=== PATIENT | female | born 1975 | race Caucasian/White ===

== ENCOUNTER 2018-02-19 12:35 | Day surgery (SDC) | payer BC ==
[~2018-02-19 12:35] MED LIST: CEFAZOLIN 1 GM INJ; DEXAMETHASONE 4 MG/ML 1 ML INJ; LIDOCAINE 2% (SDV) 5 ML INJ; METOCLOPRAMIDE 10 MG INJ; PROPOFOL 200 MG INJ; ROCURONIUM 50 MG INJ; SUCCINYLCHOLINE CHLORIDE 100 MG/5 ML SYG IV
[2018-02-19] MEDS ORDERED: CEFAZOLIN 1 GM/50 ML (PMX) 50 ML IVPB (15:00)
[2018-02-19] MEDS ORDERED: SOD CHLORIDE 0.9% 1,000 ML IV (15:00)
[2018-02-19] MEDS ORDERED: FENTAnyl 50 MCG/ML VIAL (17:41)
[2018-02-19] MEDS ORDERED: MIDAZOLAM 1 MG/ML 2 ML INJ (17:42)
[2018-02-19] MEDS ORDERED: ONDANSETRON 4 MG INJ (17:43)
[2018-02-19] MEDS ORDERED: BUPIVACAINE 0.25% (MPF) 30 ML INJ (18:15)
[2018-02-19] MEDS ORDERED: SUGAMMADEX SODIUM 200 MG/2 ML VIAL IV (19:19)
[2018-02-19] MEDS: BUPIVACAINE 0.25% (MPF) 30 ML INJ INJ ×2 (19:20)
[2018-02-19] MEDS: HYDROmorphONE 1 MG/5 ML IV SYRINGE IV ×3 (19:51→20:31)
[2018-02-19] MEDS ORDERED: MEPERIDINE 25 MG INJ IV (20:00)
[2018-02-19] MEDS ORDERED: FENTAnyl 50 MCG/ML VIAL IV ×2 (20:00)
[2018-02-19] MEDS ORDERED: DIPHENHYDRAMINE 50 MG INJ IV (20:00)
[2018-02-19] MEDS: ONDANSETRON 4 MG INJ IV (20:35)
[2018-02-19] MEDS: HYDROCODONE/APAP (5/325) TAB PO (21:00)
== END 2018-02-19 21:50 | disposition home or self-care (01) ==
LOC: SDS 12:35
DX: K80.10 Calculus of gallbladder with chronic cholecystitis without obstruction (principal)
CPT/HCPCS: 47562; 84703; 88304

== ENCOUNTER 2018-03-04 11:22 | Inpatient (IN) | payer BC ==
[2018-03-04] MEDS: ONDANSETRON 4 MG INJ IV (11:52)
[2018-03-04] MEDS: HYDROmorphONE 1 MG/ML SYG IV (11:52)
[2018-03-04] MEDS: SOD CHLORIDE 0.9% 1,000 ML IV (11:52)
[2018-03-04 11:57] LABS: ADD MAN DIFF? NO
[2018-03-04 11:58] LABS: WHITE BLOOD COUNT 13.2 10^3/ul (4.8-10.8)
[2018-03-04 11:58] LABS: BASOPHILS % 0.2 % (0.0-2.0); EOSINOPHILS # 0.1 10^3/ul (0.0-0.5); HEMATOCRIT 37.5 % (37.0-47.0); HEMOGLOBIN 11.9 g/dl (12.0-16.0); LYMPHOCYTES # 2.3 10^3/ul (0.8-2.9); LYMPHOCYTES % 17.2 % (15.0-51.0); MEAN CORPUSCULAR HEMOGLOBIN 28.2 pg (29.0-33.0); MEAN CORPUSCULAR HGB CONC 31.7 g/dl (32.0-37.0); MEAN CORPUSCULAR VOLUME 88.9 fl (82.0-101.0); MEAN PLATELET VOLUME 9.2 fl (7.4-10.4); MONOCYTE # 0.4 10^3/ul (0.3-0.9); NEUTROPHIL # 10.3 10^3/ul (1.6-7.5); NEUTROPHILS % 78.1 % (39.0-77.0); PLATELET COUNT 294 10^3/UL (140-415); RED BLOOD COUNT 4.22 10^6/ul (4.20-5.40); RED CELL DISTRIBUTION WIDTH 13.5 % (11.5-14.5)
[2018-03-04 12:25] LABS: ALANINE AMINOTRANSFERASE 95 IU/L (13-69); ALBUMIN 3.5 g/dl (3.3-4.9); ALBUMIN/GLOBULIN RATIO 0.89; ALKALINE PHOSPHATASE 133 IU/L (42-121); ANION GAP 13 (8-16); ASPARTATE AMINO TRANSFERASE 214 IU/L (15-46); BILIRUBIN,INDIRECT 0.3 mg/dl (0-1.1); BILIRUBIN,TOTAL 0.3 mg/dl (0.2-1.3); BLOOD UREA NITROGEN 18 mg/dl (7-20); CALCIUM 8.5 mg/dl (8.4-10.2); CARBON DIOXIDE 26 mmol/L (21-31); CHLORIDE 107 mmol/L (97-110); CREATININE 0.57 mg/dl (0.44-1.00); GLUCOSE 176 mg/dl (70-220); LIPASE 1233 U/L (23-300); POTASSIUM 4.2 mmol/L (3.5-5.1); SODIUM 142 mmol/L (135-144); TOTAL PROTEIN 7.4 g/dl (6.1-8.1)
[2018-03-04] MEDS: IOHEXOL 300MG/ML 150 ML BTL (13:35)
[2018-03-04] MEDS: SOD CHLORIDE 0.9% 100 ML (13:35)
[2018-03-04] MEDS ORDERED: ACETAMINOPHEN 325 MG TAB PO (14:30)
[2018-03-04] MEDS ORDERED: ONDANSETRON 4 MG INJ IV ×2 (14:30→16:00)
[2018-03-04] MEDS ORDERED: NACL 0.9% 3 ML SYG IV (16:00)
[2018-03-04] MEDS ORDERED: DOCUSATE SODIUM 100 MG CAP PO (16:00)
[2018-03-04] MEDS: DEXTROSE 5%-0.45% NACL 1,000 ML IV (16:01)
[2018-03-04] MEDS: PIPER-TAZO 3.375 GM IV (PMX) 100 ML IVPB ×2 (16:01→23:39)
[2018-03-04] MEDS: morphine 2 MG INJ IV (22:28)
[2018-03-05] MEDS: DEXTROSE 5%-0.45% NACL 1,000 ML IV ×4 (01:12→21:38)
[2018-03-05 05:55] LABS: ADD MAN DIFF? NO
[2018-03-05 06:14] LABS: WHITE BLOOD COUNT 7.8 10^3/ul (4.8-10.8)
[2018-03-05 06:14] LABS: BASOPHILS % 0.4 % (0.0-2.0); EOSINOPHILS # 0.2 10^3/ul (0.0-0.5); EOSINOPHILS % 2.2 % (0.0-7.0); HEMOGLOBIN 9.7 g/dl (12.0-16.0); LYMPHOCYTES # 0.6 10^3/ul (0.8-2.9); LYMPHOCYTES % 7.7 % (15.0-51.0); MEAN CORPUSCULAR HEMOGLOBIN 27.3 pg (29.0-33.0); MEAN CORPUSCULAR HGB CONC 31.3 g/dl (32.0-37.0); MEAN CORPUSCULAR VOLUME 87.3 fl (82.0-101.0); MEAN PLATELET VOLUME 9.7 fl (7.4-10.4); MONOCYTE # 0.7 10^3/ul (0.3-0.9); MONOCYTES % 8.4 % (0.0-11.0); NEUTROPHIL # 6.3 10^3/ul (1.6-7.5); NEUTROPHILS % 80.9 % (39.0-77.0); PLATELET COUNT 257 10^3/UL (140-415); RED BLOOD COUNT 3.55 10^6/ul (4.20-5.40); RED CELL DISTRIBUTION WIDTH 13.7 % (11.5-14.5)
[2018-03-05] MEDS: PIPER-TAZO 3.375 GM IV (PMX) 100 ML IVPB ×4 (06:16→23:44)
[2018-03-05] MEDS: PANTOPRAZOLE 40 MG INJ IV (06:16)
[2018-03-05 06:25] LABS: LIPASE 821 U/L (23-300)
[2018-03-05 06:32] LABS: ALANINE AMINOTRANSFERASE 435 IU/L (13-69); ALBUMIN/GLOBULIN RATIO 0.88; ALKALINE PHOSPHATASE 175 IU/L (42-121); ANION GAP 8 (8-16); ASPARTATE AMINO TRANSFERASE 614 IU/L (15-46); BILIRUBIN,INDIRECT 0.2 mg/dl (0-1.1); BILIRUBIN,TOTAL 0.2 mg/dl (0.2-1.3); BLOOD UREA NITROGEN 10 mg/dl (7-20); CARBON DIOXIDE 29 mmol/L (21-31); CHLORIDE 110 mmol/L (97-110); CREATININE 0.48 mg/dl (0.44-1.00); GLUCOSE 108 mg/dl (70-220); POTASSIUM 3.6 mmol/L (3.5-5.1); SODIUM 143 mmol/L (135-144); TOTAL PROTEIN 6.4 g/dl (6.1-8.1)
[2018-03-06] MEDS: DEXTROSE 5%-0.45% NACL 1,000 ML IV ×3 (03:23→16:29)
[2018-03-06 05:33] LABS: ADD MAN DIFF? NO
[2018-03-06] MEDS: PIPER-TAZO 3.375 GM IV (PMX) 100 ML IVPB ×3 (05:39→17:41)
[2018-03-06] MEDS: PANTOPRAZOLE 40 MG INJ IV (05:39)
[2018-03-06 05:41] LABS: BASOPHILS % 0.5 % (0.0-2.0); EOSINOPHILS # 0.4 10^3/ul (0.0-0.5); EOSINOPHILS % 6.9 % (0.0-7.0); HEMATOCRIT 30.6 % (37.0-47.0); HEMOGLOBIN 9.6 g/dl (12.0-16.0); LYMPHOCYTES # 1.2 10^3/ul (0.8-2.9); LYMPHOCYTES % 18.1 % (15.0-51.0); MEAN CORPUSCULAR HEMOGLOBIN 27.6 pg (29.0-33.0); MEAN CORPUSCULAR HGB CONC 31.4 g/dl (32.0-37.0); MEAN CORPUSCULAR VOLUME 87.9 fl (82.0-101.0); MEAN PLATELET VOLUME 9.3 fl (7.4-10.4); MONOCYTE # 0.5 10^3/ul (0.3-0.9); MONOCYTES % 8.1 % (0.0-11.0); NEUTROPHIL # 4.2 10^3/ul (1.6-7.5); NEUTROPHILS % 66.1 % (39.0-77.0); PLATELET COUNT 242 10^3/UL (140-415); RED BLOOD COUNT 3.48 10^6/ul (4.20-5.40); RED CELL DISTRIBUTION WIDTH 14.1 % (11.5-14.5)
[2018-03-06 05:41] LABS: WHITE BLOOD COUNT 6.4 10^3/ul (4.8-10.8)
[2018-03-06 06:31] LABS: PHOSPHORUS 3.1 mg/dl (2.5-4.9)
[2018-03-06 06:31] LABS: MAGNESIUM 1.9 mg/dl (1.7-2.5)
[2018-03-06 06:43] LABS: ALANINE AMINOTRANSFERASE 265 IU/L (13-69); ALBUMIN 2.9 g/dl (3.3-4.9); ALBUMIN/GLOBULIN RATIO 0.85; ALKALINE PHOSPHATASE 147 IU/L (42-121); AMYLASE 128 U/L (11-123); ANION GAP 8 (8-16); ASPARTATE AMINO TRANSFERASE 194 IU/L (15-46); BILIRUBIN,INDIRECT 0.1 mg/dl (0-1.1); BILIRUBIN,TOTAL 0.1 mg/dl (0.2-1.3); BLOOD UREA NITROGEN 5 mg/dl (7-20); CALCIUM 8.2 mg/dl (8.4-10.2); CARBON DIOXIDE 29 mmol/L (21-31); CHLORIDE 110 mmol/L (97-110); CREATININE 0.52 mg/dl (0.44-1.00); GLUCOSE 110 mg/dl (70-220); LIPASE 269 U/L (23-300); POTASSIUM 3.3 mmol/L (3.5-5.1); SODIUM 144 mmol/L (135-144); TOTAL PROTEIN 6.3 g/dl (6.1-8.1)
[2018-03-06] MEDS: POTASSIUM CHLORIDE (SR) 20 MEQ TAB PO (12:02)
[2018-03-07] MEDS: PIPER-TAZO 3.375 GM IV (PMX) 100 ML IVPB ×3 (00:21→13:15)
[2018-03-07] MEDS: PANTOPRAZOLE 40 MG INJ IV (06:28)
[2018-03-07 07:13] LABS: ALANINE AMINOTRANSFERASE 183 IU/L (13-69); ALBUMIN 3.1 g/dl (3.3-4.9); ALBUMIN/GLOBULIN RATIO 0.88; ALKALINE PHOSPHATASE 128 IU/L (42-121); ANION GAP 13 (8-16); ASPARTATE AMINO TRANSFERASE 91 IU/L (15-46); BILIRUBIN,INDIRECT 0.3 mg/dl (0-1.1); BILIRUBIN,TOTAL 0.3 mg/dl (0.2-1.3); BLOOD UREA NITROGEN 9 mg/dl (7-20); CALCIUM 8.4 mg/dl (8.4-10.2); CARBON DIOXIDE 24 mmol/L (21-31); CHLORIDE 110 mmol/L (97-110); CREATININE 0.63 mg/dl (0.44-1.00); GLUCOSE 105 mg/dl (70-220); POTASSIUM 3.7 mmol/L (3.5-5.1); SODIUM 143 mmol/L (135-144); TOTAL PROTEIN 6.6 g/dl (6.1-8.1)
[2018-03-07 07:57] LABS: MAGNESIUM 1.8 mg/dl (1.7-2.5)
[2018-03-07] MEDS: DEXTROSE 5%-0.45% NACL 1,000 ML IV (08:22)
[2018-03-07] MEDS ORDERED: morphine LIQ (10 MG/5 ML) CUP PO (14:30)
== END 2018-03-07 14:55 | disposition home or self-care (01) | DRG 440 ==
LOC: E/R 11:22 → MS2 14:11
DX: K85.90 Acute pancreatitis without necrosis or infection, unspecified (principal); Z98.890 Other specified postprocedural states
CPT/HCPCS: 36415; 74177; 74181; 76705; 80053; 82150; 83690; 83735; 84100; 84703; 85025; 87040; 96374; 96375; 99285-25